=== PATIENT | female | born 1970 | race Caucasian/White ===

== ENCOUNTER 2017-03-13 11:14 | Day surgery (SDC) | payer OTHER ==
[~2017-03-13] VITALS: Ht 177.8 cm; Wt 104.3 kg
[~2017-03-13 11:14] MED LIST: CETI10TA20 PO; Lactated Ringer's 1,000 ML IV ONE; Lactated Ringer's 1,000 ML IV SCH; METF500T7 PO; MetoCLOpramide 5 mg/mL 2 mL Inj IVPUSH PRN; Ondansetron 2 mg/mL 2 mL Inj IVPUSH PRN; PANT40TA3 PO; RANI150C4 PO
[2017-03-13] MEDS ORDERED: Propofol 10,000 mCg/mL 20 mL Inj ONE (11:15)
[2017-03-13 11:36] VITALS: BP 114/67; PULSE 68; RESP 14; O2SAT 96
[2017-03-13] MEDS ORDERED: MULT-666 PO (11:41)
--- NOTE | 2017-03-13 12:32 | PCM.HPANE ---
Patient Data Surgeon Admitting Provider: Attending Provider:Ramya Bruce MD Primary Care Physician:Ángel Singh MD Other Provider: Reason for Visit Colon Cancer Screening, Gerd Ht/WT & BMI Height (Feet): 5 Height (Inches): 10 Weight (Kilograms): 104.33 Body Mass Index 32.00 Allergies Coded Allergies: No Known Allergies (Unverified , 03/12/17) Past Anesthesia History Anesthesia History: Denies:: Abnormal Airway, Anesthesia Reactions, Difficult Intubation, Fam Anesthesia Reaction, Fam Malignant Hypertherm, Malignant Hyperthermia Diabetes History Hx Diabetes?: Yes Current Bedside Blood Glucose: 100 MRSA MRSA: No Medications Reported Medications Multivitamin (Once Daily)1 Each Tablet1 Each PO DAILY 03/13/17 Ranitidine 150 Mg [id number] Mg PO DAILY Ref 0 03/12/[address] 40 Mg Tablet.dr40 Mg PO DAILY Ref 0 03/12/17 Metformin ER 500 Mg Hpknaa316 Mg PO DAILY Ref 0 03/12/17 Cetirizine-Expunged Drug, Do Not Renew! 10 Mg Tab.chew10 Mg PO DAILY 11/21/10 Discontinued Reported Medications Metformin ER 500 Mg Cqniav745 Mg PO BIDBL Ref 0 03/12/17 Omeprazole-Expunged Drug, Do Not Renew! 20 Mg Capsule.dr20 Mg PO BID 11/21/10 History History of ENT Problems?: No HEENT History: Denies:: Abnormal Airway Difficult Intubation Dysphagia Hearing Problem Denture Type: None Teeth Condition: Within Normal Limits Hx of Heart Problems?: No Cardiovascular History: Denies:: AICD Abdominal Aortic Aneurism Atrial Fibrillation Cardiac Surgery Chest Pain Congestive Heart Failure Coronary Artery Disease Edema Heart Murmur Hypertension Irregular Heartbeat Pacemaker Peripheral Vascular Rheumatic Fever Thrombophlebitis Valvular Heart Disease Hx of Respiratory Problem?: No Respiratory History: Denies:: Asthma COPD Chest Surgery Cough Dyspnea Emphysema Hemoptysis Oxygen Administration Pneumonia Pulmonary Embolism Tuberculosis Use of C-PAP Machine Use of Inhalers / NEBS Hx Neurologic Problems?: No Neurological History: Denies:: CVA Hx of GI Problems?: Yes Gastrointestinal History: Denies:: Cirrhosis Diverticulitis Hiatal Hernia Liver Disease Rectal Bleeding Hx of Problems?: No Genitourinary History: Denies:: HX of Hemodialysis Kidney Stones Urinary Tract Infection HX of Peritoneal Dialysis: No Female Hx: Denies:: Currently (HYSTO) Hx Musculoskeletal Problems?: No Musculoskeletal History: Denies:: Fibromyalgia Joint Replacement Hx of Psycho/Social Problems?: No Psycho Social History: Positive for:: Hx Depression Hx Surgeries?: Yes (CSECTION, HYSTO, LAP MARSHALL, ) Hx Any Other Health Problems?: Yes Hx Diabetes: YesBedside Blood Glucose: 100 Hx Alcohol Use: Yes (RARE)Hx Substance Use: No Stop/Bang Treated for Sleep Apnea?: No Do You Have a CPAP Machine?: No S-Snoring: Do You Snore Loudly: No T-Tired: feel tired, fatigued: Yes O-Obsered: Observed not breath: Yes P-Blood Pressure: treated: No B- Body Mass Index > 35 kg/m2: Yes A- Age over 50: No N- Neck Large Circumference: No G- Gender Male: No MINDY Total Score: 3 Risk Assessment Category Category 1A: Patient has history of documented sleep apnea, and HAS NOT received any narcotic, sedative or anesthesia administration during this stay. Category 1B: Patient has history of documented sleep apnea, and HAS received any narcotic , sedative or anesthesia administration during this stay Category 2: Patient has SUSPECTED Obstructive Sleep Apnea, and HAS received any narcotic , sedative or anesthesia administration during this stay. Category 3: Patient has SUSPECTED Obstructive Sleep Apnea and HAS NOT received narcotic, sedative or anesthesia administration during this stay. Category 4: Outpatient in Procedural Areas with known sleep apnea or who screen positive for High Risk via the STOP/BANG questionnaire. Exam Exam Vital Signs Vital Signs Date Time Temp Pulse Resp B/P Pulse Ox O2 Delivery O2 Flow Rate FiO2 03/13/17 11:36 36.2 68 14 114/67 96 Room Air General Appearance: Alert, Oriented X3 HEENT/AIRWAY: MP 2 Lungs: Clear to Auscultation, Clear to Percussion Heart: Exam Unremarkable, Regular Rate/Rhythm Meds/Labs/Diagnostics Admission Meds Current Medications Lactated Ringer's (Lr) 1,000 ml @ 120 mls/hr Q8H20M IV Last administered on t 11:55; Start 03/13/17 at 07:10; Stop 03/13/17 at 15:09 Bedside Blood Glucose: 100 Plan Impression Patient chart reviewed, patient interviewed and anesthestic plan with risks, benefits, and alternatives discussed, and informed consent obtained. ASA Physical Status: ASA2 Mod Systemic Disease Anesthetic Plan: MAC Bene/Risks/Altern/Consents: Yes HP Complete Prior to Induction: Yes Fred León MD Mar 13, 2017 12:32
[2017-03-13 13:07] VITALS: BP 130/76; PULSE 77; RESP 14; O2SAT 98
--- NOTE | 2017-03-13 13:09 | PCM.ANEP1 ---
Post Anesthesia Phase 1 PACU Phase 1 Assessment Vital Signs Vital Signs Date Time Temp Pulse Resp B/P Pulse Ox O2 Delivery O2 Flow Rate FiO2 03/13/17 11:36 36.2 68 14 114/67 96 Room Air Anesthetic Administered: MAC Level of Alertness: Awake, talking SALCEDO's with Equal Strength: Yes Pain: No Nausea or Vomiting: No Oxygen Delivery: Room Air Lungs: Clear to Auscultation, Clear to Percussion Comments See anesth record for PACU VS. PACU VSS Fred León MD Mar 13, 2017 13:09
[2017-03-13 13:17] VITALS: BP 134/69; PULSE 75; RESP 16; O2SAT 96
--- NOTE | 2017-03-13 22:40 | ENDO ---
[address] [address] ENDOSCOPY PROCEDURE PATIENT: ANGELA NATHAN : 1970 MR#: [id number] ADMIT: 03/13/2017 JOB ID: [id number] DATE OF PROCEDURE: PROCEDURE: Esophagogastroduodenoscopy. INDICATION: Gastroesophageal reflux. SEDATION: Patient's ASA classification, Mallampati score and medications, please see anesthesia report. INSTRUMENT USED: [id number]. PROCEDURE DETAILS: After informed consent was obtained, the patient was brought into the GI suite, where she was placed on oxygen via nasal cannula and monitored with continuous pulse oximeter, telemetry, and blood pressure monitoring. A time-out was performed. Then, she was placed in the left lateral decubitus position and medications were administered for sedation. A bite block was placed. The standard EGD scope was inserted through the bite block and advanced under direct visualization to the second portion of duodenum. FINDINGS: 1. Normal appearing duodenal bulb, first and second portion. 2. Normal appearing pylorus. 3. In the antrum and body of stomach the mucosa had an erythematous appearance suggestive of mild gastritis. Multiple random biopsies were obtained. 4. Retroflexed views in the gastric body revealed a normal appearing cardia and fundus. 5. A small size hiatal hernia was appreciated. As the scope was withdrawn the hiatal hernia was not appreciated. The top of the gastric folds were at approximately 40 cm. The squamocolumnar junction was irregular and most proximal portion of the squamocolumnar junction was at 39 cm. Multiple random biopsies were obtained in the lower esophagus. The remainder of the esophagus otherwise unremarkable. IMPRESSION: 1. Mild gastritis. 2. Sliding hiatal hernia. 3. Irregular gastroesophageal junction. RECOMMENDATIONS: 1. Continue current medications. 2. Proceed to colonoscopy. COMPLICATIONS: None. ESTIMATED BLOOD LOSS: Less than 5 mL. PROCEDURE PERFORMED: Colonoscopy. INDICATION: Colon cancer screening. SEDATION: Please see above for ASA classification, Mallampati score, and medications. INSTRUMENT USED: [id number]. PREPARATION QUALITY: Was good. PROCEDURE DETAILS: After completion of the EGD exam, the patient was turned and a digital rectal exam was performed which was unremarkable. The colonoscope was then inserted into the rectum and advanced under direct visualization to the cecum, which identified by the presence of the ileocecal valve and appendiceal orifice. Once the cecum was reached colonoscope was withdrawn back to the rectum. Mucosa and lumen were examined. In the rectum, retroflexion was performed. Following retroflexion, remaining air in the rectum was suctioned and procedure was completed. FINDINGS: Normal exam from rectum to cecum. IMPRESSION: Normal colonoscopy. RECOMMENDATIONS: Repeat colonoscopy in 10 years, sooner if symptoms should dictate. COMPLICATIONS: None. ESTIMATED BLOOD LOSS: Less than 5 mL.
--- NOTE | 2017-03-14 17:40 | PATH ---
SURGICAL PATHOLOGY Attending Physician:Lubna Castellano CASE STATUS: Signed Out PATIENT NAME: ANGELA NATHAN PID: [id number] : 1970 DATE COLLECTED:03/13/2017 20:43 SPECIMEN: 1: Gastric, Biopsy 2: Esophagus, Biopsy 3: Colon, Biopsy CLINICAL HISTORY: 1). RANDOM GASTRIC BIOPSY 2). DISTAL ESOPHAGEAL BIOPSY 3). ASCENDING POLYP X1 FINAL DIAGNOSIS: 1. Gastric Biopsy: Gastric antral and body-type mucosa with focal mucosal erosion and otherwise no diagnostic abnormality. Negative for Helicobacter organisms by H&E stain. Negative for intestinal metaplasia. Negative for dysplasia and malignancy. 2. Distal Esophageal Biopsy: Squamocolumnar junctional mucosa with no diagnostic abnormality. Negative for intestinal metaplasia. Negative for dysplasia and malignancy. 3. Ascending Colon, Polyp, Biopsy: Multiple portions (approximately six) of sessile serrated adenoma. ICD10: K63.5 GROSS DESCRIPTION: The specimen is received in three formalin filled containers labeled with the patient's name. is 1). The specimen is sublabeled "gastric" and consists of 2 portions of tissue which aggregate to 0.5 x 0.3 x 0.2 CM. The specimen is entirely submitted in cassette 1A. 2). The specimen is sublabeled "distal esophageal" and consists of 2 portions of tissue which aggregate to 0.3 x 0.3 x 0.3 CM. The specimen is entirely submitted in cassette 2A. 3). The specimen is sublabeled "ascending polyp" and consists of multiple portions of tissue which aggregate to 0.4 x 0.4 x 0.2 CM. The specimen is entirely submitted in cassettes 3A. 03/13/2017 [facility] ICD-9 CODES: CPT CODES: 1: 71076 2: 29122 3: 80430 Electronically Signed Out Meenu Negron MD [facility] Pathology [facility], [place] [address] Technical component performed at [facility], [facility] [address], [place], [address]
== END 2017-03-13 23:59 | disposition home or self-care (01) ==
LOC: END 11:14
PROVIDERS: ATTEND Internal Medicine Gastroenterology
DX: Z12.11 Encounter for screening for malignant neoplasm of colon (principal); D12.2 Benign neoplasm of ascending colon; Z86.010 Personal history of colon polyps; K29.70 Gastritis, unspecified, without bleeding; K44.9 Diaphragmatic hernia without obstruction or gangrene; K21.9 Gastro-esophageal reflux disease without esophagitis; E11.9 Type 2 diabetes mellitus without complications; J30.9 Allergic rhinitis, unspecified; E78.5 Hyperlipidemia, unspecified; Z79.84 Long term (current) use of oral hypoglycemic drugs
CPT/HCPCS: 43239; 45385; 88305; J7120